=== PATIENT | male | born 1940 | race Caucasian/White ===

== ENCOUNTER 2016-10-04 06:37 | Day surgery (SDC) | payer MEDICARE, OTHER ==
[2016-09-29 11:00] LABS: HEMATOCRIT 39.1 % (40.0-51.0); HEMOGLOBIN 13.6 g/dL (13.6-17.8)
--- NOTE | ~2016-10-04 | OP ---
Record Of Operation [facility] [address] [place]. [address] NAME: TERI DE LA GARZA : 42 STATUS : [facility]#: [id number] AGE: 76 ADM/REG DATE : 10/04/16 MR#: [id number] REPORT SERV DATE: 10/04/16 DICTATED BY: Patt FONTANA DATE: 10/04/16 REPORT STATUS : Draft TRANSCRIBED BY: MODL DATE: 10/04/16 DATE OF PROCEDURE: 10/04/2016 PREOPERATIVE DIAGNOSIS: Elevated prostate specific antigen of 37.90. POSTOPERATIVE DIAGNOSIS: Elevated prostate specific antigen of 37.90. PROCEDURE: Transrectal ultrasound-guided needle biopsy of the prostate. SURGEON: Patt Fontana M.D. ANESTHESIA: MAC. COMPLICATIONS: None. DRAINS: None. BRIEF HISTORY: Mr. De La Garza is a 76-year-old white male with a history of an elevated PSA and massive BPH. He previously had a gland volume of 167 mL and was treated with finasteride, although he stopped it on the advice of a family member. His PSA has been in the 16 range and he manages retention with self catheterization three to four times a day. Recent followup showed that his PSA had elevated to 37.90 and we decided to proceed with a biopsy. He requested anesthesia. Risk of bleeding, infection, anesthesia, injury to adjacent organs, need for additional therapy etc., were all discussed. There were no unanswered questions. DESCRIPTION OF PROCEDURE: Under excellent MAC anesthesia, the patient was placed in the left lateral decubitus position, knees to chest. Transrectal ultrasonography was performed. It showed a very large prostate measuring 313 mL. There were no focal lesions noted. I performed biopsies from six sectors, two from the left base, three from the left mid gland, two from the left apex. Similarly, two from the right base, three from the right mid gland, two from the right apex. The patient tolerated the procedure well and will be discharged as an outpatient with the following instructions. DISCHARGE INSTRUCTIONS: 1. Home today. 2. Call for fever or excessive bleeding. 3. Otherwise, follow up in my office next week to review pathology. If he has benign disease, we will at least discuss the possibility of a robotic suprapubic prostatectomy. In the past, he has been uninterested in surgical procedures, but may have additionally, we will discuss the role of finasteride if he so chooses. GLEN/RADHA Record Of [place] [address] [place] [address] NAME: TERI DE LA GARZA : 42 STATUS : [facility] PAT#: [id number] AGE: 76 ADM/REG DATE : 10/04/16 MR#: [id number] REPORT SERV DATE: 10/04/16 DICTATED BY: Patt FONTANA DATE: 10/04/16 REPORT STATUS : Draft TRANSCRIBED BY: RADHA DATE: 10/04/16 Patt Fontana M.D. / [id number] CC: Patt Fontana M.D.
[~2016-10-04 06:37] MED LIST: *DENIES
== END 2016-10-04 09:59 | disposition home or self-care (01) ==
LOC: SDC 06:37
PROC: 0V907ZX Drainage of Prostate, Via Natural or Artificial Opening, Diagnostic (ICD-10-PCS; principal; 2016-10-04 07:45)
DX: N41.0 Acute prostatitis (principal); N41.1 Chronic prostatitis; N40.0 Benign prostatic hyperplasia without lower urinary tract symptoms; M19.012 Primary osteoarthritis, left shoulder; F17.210 Nicotine dependence, cigarettes, uncomplicated; Z88.0 Allergy status to penicillin; Z98.41 Cataract extraction status, right eye; Z98.42 Cataract extraction status, left eye; Z97.2 Presence of dental prosthetic device (complete) (partial); Z90.89 Acquired absence of other organs; Z98.890 Other specified postprocedural states
CPT/HCPCS: 76872; 76942; 85014; 85018; 88305; 93005